=== PATIENT | male | born 1945 | race Caucasian/White ===

== ENCOUNTER 2017-10-10 06:28 | Inpatient (IN) | payer MEDICARE ==
[~2017-10-10] VITALS: Ht 185.4 cm; Wt 82.9 kg
[~2017-10-10 06:28] MED LIST: ASCO-96 PO; ASPI-621 PO; BUDE10.2 INH; CALCIUM CITRATE PO; GLUC-104 PO; SELE200T10 PO; VITAMIN B12 PO; VITAMIN E PO; [UNRECOGNIZED DRUG - OTHER] PO
[2017-10-10] MEDS ORDERED: SODIUM CHLORIDE 0.9% 100 ML ONE (06:36)
[2017-10-10] MEDS ORDERED: TRANEXAMIC ACID 100 MG/ML, 10ML ONE (06:36)
[2017-10-10] MEDS ORDERED: EPINEPHRINE 1 MG/ML, 1ML ONE (06:36)
[2017-10-10] MEDS ORDERED: KETOROLAC 60 MG/2 ML ONE ×2 (06:36→10:14)
[2017-10-10] MEDS ORDERED: LACTATED RINGERS 1,000 ML IV SCH (07:05)
[2017-10-10 07:08] VITALS: BP 128/73
[2017-10-10] MEDS ORDERED: MIDAZOLAM 1 MG/ML, 2ML ONE (07:47)
[2017-10-10] MEDS ORDERED: FENTANYL PF 100 MCG/2ML ONE ×3 (07:47→09:31)
[2017-10-10] MEDS ORDERED: ONDANSETRON 2MG/ML, 2ML ONE (09:06)
[2017-10-10] MEDS ORDERED: DEXAMETHASONE 4 MG/ML, 1ML ONE (09:06)
[2017-10-10] MEDS ORDERED: CEFAZOLIN 1,000 MG ONE (09:06)
[2017-10-10] MEDS ORDERED: DIPHENHYDRAMINE 25 MG CAPSULE PO PRN (09:30)
[2017-10-10] MEDS ORDERED: morphine SULFATE 10 MG/ML, 1ML IV PRN (09:30)
[2017-10-10] MEDS ORDERED: ONDANSETRON 4 MG TABLET PO PRN (09:30)
[2017-10-10] MEDS ORDERED: HYDROcodone/APAP 10/325 MG TABLET PO PRN (09:30)
[2017-10-10] MEDS ORDERED: ZOLPIDEM 5MG TABLET PO PRN (09:30)
[2017-10-10] MEDS ORDERED: ONDANSETRON 2MG/ML, 2ML IV PRN (09:30)
[2017-10-10] MEDS ORDERED: PROMETHAZINE 25 MG/ML, 1ML IM PRN (09:30)
[2017-10-10] MEDS ORDERED: SUCCINYLCHOLINE 20 MG/ML, 10ML ONE (09:57)
[2017-10-10] MEDS ORDERED: ROCURONIUM 10 MG/ML,10ML ONE (09:57)
[2017-10-10] MEDS ORDERED: PROPOFOL 10 MG/ML, 20ML ONE (09:57)
[2017-10-10] MEDS ORDERED: ONDANSETRON 2MG/ML, 2ML IVPush PRN (11:00)
[2017-10-10] MEDS ORDERED: hydrALAzine 20 MG/ML, 1ML IV PRN (11:00)
[2017-10-10] MEDS ORDERED: ACETAMINOPHEN 325 MG TABLET PO PRN (11:00)
[2017-10-10] MEDS ORDERED: METOCLOPRAMIDE 5 MG/ML, 2ML IV PRN (11:00)
[2017-10-10] MEDS ORDERED: OXYcodone 5 MG/5 ML ORAL.SOL UDC PO PRN (11:00)
[2017-10-10] MEDS ORDERED: LABETALOL 5MG/ML, 20ML IV PRN (11:00)
[2017-10-10] MEDS ORDERED: FENTANYL PF 100 MCG/2ML IV PRN (11:00)
[2017-10-10] MEDS ORDERED: OXYcodone 5 MG/5 ML ORAL.SOL UDC ONE (11:16)
[2017-10-10] MEDS ORDERED: HYDROmorphone 1 MG/ML, 1ML ONE (11:16)
[2017-10-10] MEDS ORDERED: ACETAMINOPHEN 650 MG/20.3 ML UDC ONE (11:16)
[2017-10-10] MEDS: HYDROmorphone 1 MG/ML, 1ML IV PRN ×2 (11:26→11:36)
[2017-10-10 12:15] VITALS: BP 131/74
[2017-10-10] MEDS: D5%-0.45% NACL 1,000 ML IV SCH ×3 (14:36→22:06)
[2017-10-10] MEDS: OXYcodone IR 5MG TABLET PO PRN ×2 (15:26→22:05)
[2017-10-10] MEDS: TAMSULOSIN 0.4 MG CAP.ER.24H PO SCH (15:26)
[2017-10-10 15:49] VITALS: BP 137/75
[2017-10-10] MEDS: CEFAZOLIN PMX 2GM/50ML 50 ML IVPB SCH (17:14)
[2017-10-10] MEDS ORDERED: TRANEXAMIC ACID 1,000 MG in SODIUM CHLORIDE 0.9% 100 ML IVPB ONE (18:00)
[2017-10-10] MEDS: ASPIRIN 81 MG TABLET EC PO SCH (18:14)
[2017-10-10 20:03] VITALS: BP 115/63
[2017-10-10 23:37] VITALS: BP 114/67
[2017-10-11] MEDS: D5%-0.45% NACL 1,000 ML IV SCH ×2 (01:11→08:44)
[2017-10-11] MEDS: CEFAZOLIN PMX 2GM/50ML 50 ML IVPB SCH (01:11)
[2017-10-11 03:09] VITALS: BP 129/76
[2017-10-11] MEDS: OXYcodone IR 5MG TABLET PO PRN ×3 (04:28→15:03)
[2017-10-11] MEDS: ASPIRIN 81 MG TABLET EC PO SCH (04:28)
[2017-10-11] MEDS ORDERED: DEXAMETHASONE 4 MG/ML, 1ML IVPush SCH (06:00)
[2017-10-11 07:05] VITALS: BP 110/61
[2017-10-11] MEDS: TAMSULOSIN 0.4 MG CAP.ER.24H PO SCH ×2 (08:44→08:52)
[2017-10-11] MEDS ORDERED: KETOROLAC 30 MG/1 ML IV SCH (09:30)
[2017-10-11] MEDS ORDERED: OXYC5TAB2 PO (12:46)
[2017-10-11] MEDS ORDERED: ASPI-621 PO (12:47)
[2017-10-11 14:36] VITALS: BP 99/61
== END 2017-10-11 15:30 | disposition home or self-care (01) | DRG 470 ==
LOC: ORIP 06:28 → 4NOR 12:08
PROVIDERS: ADMIT Orthopaedic Surgery; ATTEND Orthopaedic Surgery
PROC: 0SR902A Replacement of Right Hip Joint with Metal on Polyethylene Synthetic Substitute, Uncemented, Open Approach (ICD-10-PCS; principal; 2017-10-10 09:15)
DX: M16.11 Unilateral primary osteoarthritis, right hip (principal); J45.909 Unspecified asthma, uncomplicated; Z88.2 Allergy status to sulfonamides; Z88.8 Allergy status to other drugs, medicaments and biological substances; Z79.82 Long term (current) use of aspirin; Z79.899 Other long term (current) drug therapy
CPT/HCPCS: 36415; 72170; 86850; 86900; C1713; J0171; J0690; J1100; J1170; J1885; J2250; J2405; J2704; J3010; C1776; J0330; J7120